=== PATIENT | female | born 1985 | race Caucasian/White ===

== ENCOUNTER 2023-11-23 11:11 | Emergency (ER) | payer OTHER, SELFPAY ==
[2023-11-23 11:15] VITALS: BP 144/69; PULSE 85; RESP 17; TEMP 36.5; O2SAT 99
--- NOTE | 2023-11-23 11:46 | ED_ITS ---
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 Patient states she was high for several days and had multiple partners. Patient did have testing for STDs. Patient was found to have bacterial vaginosis. Patient is currently on Flagyl. Patient is concerned she has a retained tampon. Patient denies any other symptoms. Related Data Allergies Allergy/AdvReac Type Severity Reaction Status Date / Time No Known Allergies Allergy Verified 11/23/23 11:18 Review of Systems Review of Systems: A 10 system review of systems was completed on the patient and is negative except for what is stated in the HPI. Nursing and ancillary documentation was reviewed. Exam Narrative: GENERAL: Well-appearing, well-nourished, and in no acute distress. HEAD: Normocephalic, atraumatic. EYES: PERRLA and EOMI. ENT: Nares clear, no rhinorrhea or epistaxis. Mucous membranes moist. NECK: Supple. CHEST: Clear to auscultation. No respiratory distress. HEART: Regular rate and rhythm. No murmur heard. Normal peripheral pulses. ABDOMEN: Soft, nontender, nondistended, normal active bowel sounds. EXTREMITIES: Normal range of motion. No edema. SKIN: Warm, dry, no rash. NEURO: No focal deficits. Alert and oriented x3. PSYCH: Normal mood and affect. : External Female Exam: normal external appearance Speculum Exam - Vagina: normal appearance of the vagina, abnormal vaginal discharge white and no foreign bodies Course Course Emergency Course: Pelvic exam was negative for foreign body. Patient is currently on treatment for bacterial vaginosis. Will prescribe Zofran for nausea related to the Flagyl Vital Signs Vital signs: Vital Signs Temperature 36.5 C 11/23/23 11:15 Pulse Rate 85 11/23/23 11:15 Respiratory Rate 17 11/23/23 11:15 Blood Pressure 144/69 H 11/23/23 11:15 Pulse Oximetry 99 11/23/23 11:15 Oxygen Delivery Room Air 11/23/23 11:15 Temperature 36.5 C 11/23/23 11:15 Pulse Rate 85 11/23/23 11:15 Respiratory Rate 17 11/23/23 11:15 Blood Pressure 144/69 H 11/23/23 11:15 Pulse Oximetry 99 11/23/23 11:15 Oxygen Delivery Room Air 11/23/23 11:15 MDM - Female Genitourinary MDM Narrative Medical decision making narrative: Will discharge home with Zofran Discharge Plan Discharge Clinical Impression: Vaginal discharge Patient Disposition: Home, Self-Care Condition: Stable Instructions: Antibiotic Form, Bacterial Vaginosis (ED) Additional Instructions: Take medications as prescribed Return for fevers, abdominal pain, or any other concerning symptoms Prescriptions: New ondansetron 4 mg tablet,disintegrating 4 mg PO Q8H PRN (Reason: nausea and vomiting) Qty: 14 0RF Follow-up/Referrals: PHYSICIAN,BORDER PATROL OFFICER [Primary Care Provider] - Time of Disposition: 11:51
== END 2023-11-23 12:20 | disposition home or self-care (01) ==
LOC: ANHED 12:16
PROVIDERS: Emergency Provider Nurse Practitioner Family
DX: N89.8 Other specified noninflammatory disorders of vagina (principal)
CPT/HCPCS: 99283

== ENCOUNTER 2023-12-09 13:00 | Emergency (ER) | payer OTHER, SELFPAY ==
--- NOTE | ~2023-12-09 | XR_ITS ---
XR abdomen/kub 1V DATE: 12/09/2023 14:12 INDICATION: Constipation for 27 days TECHNIQUE: 2 supine AP views COMPARISON: None FINDINGS: There is no evidence of bowel obstruction. There is no unusually large amount of fecal mate rial within the colon. No visceromegaly or significant abnormal calcification is noted. IMPRESSION: No significant abnormality Reviewed, dictated and finalized at [facility]. Reviewed, dictated and finalized at [facility]. IMPRESSION: No significant abnormality
[2023-12-09 13:06] VITALS: BP 141/84; PULSE 91; RESP 18; TEMP 36.8; O2SAT 100
[2023-12-09] MEDS: LACTULOSE 20 GM/30 ML UDC PO (14:03)
--- NOTE | 2023-12-09 15:24 | ED.ABDPAIN ---
HPI - Abdominal Pain General Chief Complaint: Abdominal Pain Stated Complaint: constipation, generalized abd pain Time Seen by Provider: 12/09/23 13:09 Source: patient Mode of arrival: ambulatory Limitations: no limitations History of Present Illness HPI narrative: This is a 38-year-old female, with history of amphetamine abuse, who presents to the emergency department from chest not for constipation. The patient states she has not had an bowel movement in the past 3 weeks. She has tried [id number] stool softeners and MiraLax without improvement. She states she is able to pass gas and has not vomited. She complains 3/10 abdominal discomfort has no other complaints at this time. Related Data Allergies Allergy/AdvReac Type Severity Reaction Status Date / Time No Known Allergies Allergy Verified 12/09/23 13:02 Review of Systems Review of Systems: Last menstrual period 2 days ago All systems reviewed & are unremarkable except as noted in HPI and below PMFSH Past Medical History Medical History Amphetamine abuse in remission Surgical History Surgical History No significant past surgical history Social History Social History Smoking status: Former smoker Alcohol intake: former Substance use: former Exam Narrative: GENERAL: Well-developed, well-nourished, and in no acute distress. HEAD: Normocephalic, atraumatic. EYES: PERRLA and EOMI. CHEST: Clear to auscultation. No respiratory distress. No wheezes rales or rhonchi HEART: Regular rate and rhythm. No murmur heard. Normal peripheral pulses. ABDOMEN: Soft, minimal tenderness to palpation in left lower quadrant without rebound or guarding, nondistended, normal active bowel sounds. EXTREMITIES: Normal range of motion. No edema. SKIN: Warm, dry, no rash. NEURO: Alert and oriented x3. No focal deficit. Moving all 4 limbs spontaneously PSYCH: Normal mood and affect. Course Course Emergency Course: 15:24 - On re-evaluation after a soapsuds enema, the patient had a good bowel movement. KUB not concerning for obstructive process. Will discharge with recommendation for fzxk-[id number]-[id number] stool softeners and laxatives as needed. I discussed the findings and recommendations with the patient. Discussed return and emergency precautions including signs/symptoms of acute abdomen and intractable vomiting. The patient voiced understanding and agreement with the plan. All questions answered to her satisfaction. Vital Signs Vital signs: Vital Signs Temperature 98.3 F 12/09/23 13:06 Pulse Rate 91 12/09/23 13:06 Respiratory Rate 18 12/09/23 13:06 Blood Pressure 141/84 H 12/09/23 13:06 Pulse Oximetry 100 12/09/23 13:06 Oxygen Delivery Room Air 12/09/23 13:06 Temperature 98.3 F 12/09/23 13:06 Pulse Rate 91 12/09/23 13:06 Respiratory Rate 18 12/09/23 13:06 Blood Pressure 141/84 H 12/09/23 13:06 Pulse Oximetry 100 12/09/23 13:06 Oxygen Delivery Room Air 12/09/23 13:06 MDM - Abdominal Pain MDM Narrative Medical decision making narrative: plan: Imaging, enema, laxatives, reassess Differential Diagnosis Differential diagnosis: Likely constipation, small bowel obstruction and other Imaging Data Radiologist's impression: ITS Impressions Abdomen X-Ray 12/09/23 14:15 IMPRESSION: No significant abnormality Discharge Plan Discharge Clinical Impression: Constipation Qualifiers: Constipation type: unspecified constipation type Qualified Code(s): K59.00 - Constipation, unspecified Patient Disposition: Home, Self-Care Condition: Stable Instructions: Antibiotic Form, Constipation (ED) Additional Instructions: You were seen in the emergency department. An x-ray was not concerning for bowel obstruction. Your given a soapsuds enema with improvement. I recommend some fiber supplementation and stool softeners as needed. You may use [id number]-uispigx laxatives as needed, though be careful to avoid overuse. If you develop severe abdominal pain, abdominal pain with fevers, persistent vomiting, bleeding, or if you have other emergent concerns for life, limb, or eyesight, return to the emergency department. Patient Language: Luxembourgish Prescriptions: No Action ondansetron 4 mg tablet,disintegrating 4 mg PO Q8H PRN (Reason: nausea and vomiting) Qty: 14 0RF Follow-up/Referrals: Thaddeus Nicholson MD [Physician] - 2 Weeks PHYSICIAN,JACKET CHANGER [Primary Care Provider] - Time of Disposition: 15:26
--- NOTE | 2023-12-09 15:27 | PC.NURSE ---
Patient states enema was successful
== END 2023-12-09 15:36 | disposition home or self-care (01) ==
PROVIDERS: Emergency Provider Preventive Medicine Aerospace Medicine
DX: K59.00 Constipation, unspecified (principal); F15.10 Other stimulant abuse, uncomplicated; Z87.891 Personal history of nicotine dependence
CPT/HCPCS: 74018; 99283; A9270